=== PATIENT | female | born 1965 | race Caucasian/White ===

== ENCOUNTER 2021-06-14 11:56 | Emergency (ER) | payer OTHER, SELFPAY ==
[2021-06-14 12:15] VITALS: BP 154/94; PULSE 96; RESP 20; TEMP 37.1; O2SAT 97
--- NOTE | 2021-06-14 12:20 | ED.GENADULT ---
HPI - General Adult General Chief complaint: Skin/Abscess/Foreign Body Stated complaint: Rash bilateral legs and arms Time Seen by Provider: 06/14/21 12:20 Source: patient and RN notes reviewed Mode of arrival: ambulatory Limitations: no limitations History of Present Illness HPI narrative: 55-year-old female presents with complains of red, burning, and itching rash to arms, legs, face, and chest for the past 9 days. Devang reports increasing symptoms over the past 2-3 days. Devang reports outside doing yard work (cutting debris off fence) 1-2 days prior to rash and again 1-2 days. Hydrocortisone, anti-itching cream, apple cider vinegar, and po Benadryl (last today at 03:00) with little relief. Denies new detergent, personal hygiene products, or laundry detergent. No new foods or medications. No swelling, bleeding, or drainage. Denies fever or chills, headaches, weakness, fatigue, myalgia, facial swelling, or tongue swelling. Denies chest pain or dyspnea. Remains active. The patient reports she has not been diagnosed with COVID-19. The patient reports she received 2 Moderna COVID-19 vaccines. The patient reports she is not waiting for the results of a COVID-19 lab test. The patient reports she does not have weakness, fatigue, or myalgia. The patient reports she does not have a new or worsening cough or shortness of breath. The patient reports she does not have any rhinorrhea, congestion, loss of taste or smell, sore throat, and diarrhea. Denies recent traveling. Denies concerns for COVID-19 or exposures. At this time, the patient is not suspected of having COVID-19. Some parts of this dictation were generated by voice recognition software and may contain typographical and/or grammatical inaccuracies. Related Data Home Medications Medication Instructions Recorded Confirmed albuterol sulfate 1 puff INHALATION TID 06/14/21 06/14/21 sertraline 100 mg PO DAILY 06/14/21 06/14/21 Allergies Allergy/AdvReac Type Severity Reaction Status Date / Time No Known Allergies Allergy Verified 06/14/21 12:24 Review of Systems Review of Systems: CONSTITUTIONAL: Denies fever, chills, sweats. EYES: Denies visual changes, redness, discharge. ENT: Denies rhinorrhea, congestion, sore throat, otalgia. CARDIOVASCULAR: Denies chest pain, palpitations, edema. RESPIRATORY: Denies dyspnea, wheezing, cough. GASTROINTESTINAL: Denies abdominal pain, nausea, vomiting, diarrhea. SKIN: Complains of red, burning, and itching rash to arms, legs, face, and chest. Denies drainage. MUSCULOSKELETAL: Denies acute back pain, joint pain, or myalgia. NEUROLOGIC: Denies numbness or focal weakness. PSYCHIATRIC: Denies anxiety or depression. All other systems reviewed are negative, except as documented in HPI. [facility] Past Medical History Medical History (Updated 06/15/21 @ 00:01 by Corwin Pretty) Anxiety Depression Surgical History Surgical History (Updated 06/14/21 @ 13:21 by EDUARDO Nunn) No significant past surgical history Family History Family History (Updated 06/14/21 @ 13:22 by EDUARDO Nunn) Father Cerebral hemorrhage Mother Natural with proved cause Social History Social History (Updated 06/14/21 @ 13:23 by EDUARDO Nunn) Smoking packs per day: 1 Smoking cigarettes per day: 20.0 Years smoked: 30 Smoking pack-years: 30.00 Smoking status: Current every day smoker Tobacco type: cigarettes Second hand tobacco smoke exposure: No Alcohol intake: current Substance use: current Substance use type: marijuana Living arrangements: with family Occupation/Education: occupation Sexual Orientation (if Verbalized by the Patient): Straight or Heterosexual Comments At time of signature, agree with nurse past medical, surgical, social, and family history. There is no relevant family history pertinent to the presenting complaint. Exam Narrat
[2021-06-14] MEDS: methylPREDNISolone SOD SUCC 125 MG VIAL IM (12:38)
--- NOTE | 2021-06-14 12:55 | PC.NURSE ---
1217-Bilateral arm and legs diffuse red rash noted. Various scratches and abrasions noted to bilateral arms and legs. Multiple red, open areas and scabbed areas noted to bilateral inner thighs. No evidence of infection noted at this time.
== END 2021-06-14 13:02 | disposition home or self-care (01) ==
PROVIDERS: Emergency Provider Nurse Practitioner Family; PCP Family Medicine
DX: L23.7 Allergic contact dermatitis due to plants, except food (principal); F17.210 Nicotine dependence, cigarettes, uncomplicated; F41.9 Anxiety disorder, unspecified; F32.9 Major depressive disorder, single episode, unspecified
CPT/HCPCS: 96372; 99213; G0463; J2930

== ENCOUNTER 2022-06-14 13:49 | Emergency (ER) | payer OTHER, SELFPAY ==
[2022-06-14 14:03] VITALS: BP 175/92; PULSE 100; RESP 18; TEMP 36.3; O2SAT 98
--- NOTE | 2022-06-14 14:20 | ED.SKABFB ---
HPI - Skin/Abscess/Foreign Bdy General Chief complaint: Skin/Abscess/Foreign Body Stated complaint: bee sting Time Seen by Provider: 06/14/22 14:10 Source: patient Mode of arrival: ambulatory Limitations: no limitations History of Present Illness HPI narrative: Patient presents today complaining of a bee sting to the posterior aspect of her left upper leg that was sustained approximately 2 hours prior to arrival. States the area has become swollen in the swollen area continues to grow. She denies any shortness of breath, difficulty swallowing, nausea or vomiting. She has applied ice, baking soda, and apple cider vinegar without relief of symptoms. Related Data Home Medications Medication Instructions Recorded Confirmed albuterol sulfate 90 mcg/actuation 1 puff inhalation PRN PRN 06/14/21 06/14/22 aerosol inhaler Shortness Of Breath Or Wheezing sertraline 100 mg tablet 100 mg PO DAILY 06/14/21 06/14/22 Allergies Allergy/AdvReac Type Severity Reaction Status Date / Time No Known Allergies Allergy Verified 06/14/22 13:54 Review of Systems Review of Systems: CONSTITUTIONAL: Denies body aches, fever, chills, or sweats. EYES: Denies visual changes, redness, or discharge. ENT: Denies rhinorrhea, congestion, sore throat, or otalgia. CARDIOVASCULAR: Denies chest pain, palpitations, or edema. RESPIRATORY: Denies cough or dyspnea. GASTROINTESTINAL: Denies abdominal pain, nausea, vomiting, or diarrhea. GENITOURINARY: Denies dysuria or hematuria. SKIN: + Bee sting MUSCULOSKELETAL: Denies back pain, joint pain, or myalgia. NEUROLOGIC: Denies headache, numbness, tingling, or weakness. PSYCH: Denies depression or anxiety. [facility] Past Medical History Medical History (Updated 06/14/22 @ 14:26 by Kayla Hodges, EDUARDO, ) Anxiety Depression Surgical History Surgical History (Updated 06/14/21 @ 13:21 by EDUARDO Nunn) No significant past surgical history Family History Family History (Updated 06/14/21 @ 13:22 by EDUARDO Nunn) Father Cerebral hemorrhage Mother Natural with proved cause Social History Social History (Updated 06/14/21 @ 13:23 by Tatonya M. Hernandez, [employer]) Smoking packs per day: 1 Smoking cigarettes per day: 20.0 Years smoked: 30 Smoking pack-years: 30.00 Smoking status: Current every day smoker Tobacco type: cigarettes Second hand tobacco smoke exposure: No Alcohol intake: current Substance use: current Substance use type: marijuana Sexual Orientation (if Verbalized by the Patient): Straight or Heterosexual Comments At time of signature, I have reviewed and agree with nursing past medical, surgical, social and family history unless otherwise noted. Please see nursing chart for further information. There is no relevant family history pertinent to the presenting complaint Exam Narrative: GENERAL: Well-appearing, well-nourished, and in no acute distress. HEAD: Normocephalic, atraumatic. EYES: EOMI. No redness or drainage. ENT: Mucous membranes pink and moist. No facial swelling. NECK: Normal AROM. CHEST: No respiratory distress. EXTREMITIES: Normal range of motion. No edema. SKIN: Warm, dry, no rash. Capillary refill normal. Normal skin turgor. 13 x 9 cm area of mild erythema and localized edema to the left posterior thigh. 2 small puncture wounds noted. Area is nontender. No induration or fluctuance noted. NEURO: No focal deficits. Alert and oriented x3. Gait steady. PSYCH: Normal affect. No signs of depression or anxiety. Course Course Level of Care: Express Care Visit Vital Signs Vital signs: Vital Signs Temperature 97.4 F L 06/14/22 14:03 Pulse Rate 100 06/14/22 14:03 Respiratory Rate 18 06/14/22 14:03 Blood Pressure 175/92 H 06/14/22 14:03 Pulse Oximetry 98 06/14/22 14:03 Oxygen Delivery Room Air 06/14/22 14:03 Temperature 97.4 F L 06/14/22 14:03 Pulse Rate 100
[2022-06-14 14:24] VITALS: BP 158/92
== END 2022-06-14 14:28 | disposition home or self-care (01) ==
PROVIDERS: Emergency Provider Nurse Practitioner; PCP Family Medicine
DX: T63.441A Toxic effect of venom of bees, accidental (unintentional), initial encounter (principal); F41.9 Anxiety disorder, unspecified; F32.A Depression, unspecified; F17.210 Nicotine dependence, cigarettes, uncomplicated
CPT/HCPCS: 96372; 99213; G0463; J1100

== ENCOUNTER 2022-07-18 16:59 | Emergency (ER) | payer OTHER, SELFPAY ==
--- NOTE | ~2022-07-18 | XR_ITS ---
EXAMINATION: XR chest 2V DATE: 07/18/2022 17:20 INDICATION: Productive cough TECHNIQUE: PA and lateral views of the chest are obtained. COMPARISON: None available FINDINGS: The lungs are hyperinflated. There are minimal airspace opacities of the right middle lobe. No pleural effusion or pneumothorax. The cardiomediastinal silhouette is normal. There is mild thora cic spondylosis. IMPRESSION: 1. Airspace opacities of the right middle lobe which may be infectious or inflammatory. Recommend fol lowup radiographs in 10-14 days after appropriate therapy to evaluate for improvement/resolution. Reviewed, dictated and finalized at location A. IMPRESSION: 1. Airspace opacities of the right middle lobe which may be infectious or infla mmatory. Recommend followup radiographs in 10-14 days after appropriate therapy to evaluate for improvement/resolution.
[2022-07-18 17:08] VITALS: BP 152/94; PULSE 116; RESP 20; TEMP 36.7; O2SAT 94
--- NOTE | 2022-07-18 17:14 | ED.URI ---
HPI - URI/Sore Throat General Chief Complaint: Upper Respiratory Infection Stated Complaint: Cough,Shortness of Breath,Runny Nose,Fatigue Time Seen by Provider: 07/18/22 17:15 History of Present Illness HPI Narrative: Devang Poole is a 56 yo female with PMH asthma who comes with a 7-10 day hx of cough and fever, sob. Has coughing fits that make her sob. She vomited firts few days, has been cpoughing since. No dx of respiratory illnesses Related Data Home Medications Medication Instructions Recorded Confirmed albuterol sulfate 90 mcg/actuation 1 puff inhalation PRN PRN 06/14/21 07/18/22 aerosol inhaler Shortness Of Breath Or Wheezing sertraline 100 mg tablet 100 mg PO DAILY 06/14/21 07/18/22 Allergies Allergy/AdvReac Type Severity Reaction Status Date / Time No Known Allergies Allergy Verified 07/18/22 17:01 Review of Systems Review of Systems: CONSTITUTIONAL: Denies fever, chills, sweats. Shortness of breath EYES: Denies visual changes, redness, discharge. ENT: Denies rhinorrhea, has congestion, sore throat, otalgia. CARDIOVASCULAR: Denies chest pain, palpitations, edema. RESPIRATORY: Denies dyspnea, wheezing, has cough GASTROINTESTINAL: Denies abdominal pain, nausea, vomiting, diarrhea. GENITOURINARY: Denies dysuria, hematuria, abnormal discharge SKIN: Denies rash or itching. NEUROLOGIC: Denies numbness, or focal weakness. PSYCHIATRIC: Denies anxiety or depression. [facility] Past Medical History Medical History Anxiety Depression Surgical History Surgical History No significant past surgical history Family History Family History Father Cerebral hemorrhage Mother Natural with proved cause Social History Social History Smoking packs per day: 1 Smoking cigarettes per day: 20.0 Years smoked: 30 Smoking pack-years: 30.00 Smoking status: Current every day smoker Tobacco type: cigarettes Second hand tobacco smoke exposure: No Alcohol intake: current Substance use: current Substance use type: marijuana Sexual Orientation (if Verbalized by the Patient): Straight or Heterosexual Exam Narrative: GENERAL: This is a well-nourished, well-developed patient, in mild distress. HEAD: normocephalic, atraumatic. EYES: Sclera clear/white. Vision is grossly intact. EARS: External ears normal, auditory canals clear and without drainage, TMs normal without perforation. Hearing grossly intact. NOSE: External nose normal without nasal discharge, nares without redness, has rhinorrhea. THROAT: Mucous membranes moist, posterior pharynx erythema NECK: Neck supple, non-tender CARDIOVASCULAR: Regular rate and rhythm without murmurs, gallops, or rubs. RESPIRATORY: Diminished to auscultation. Breath sounds equal bilaterally. No wheezes, rales, or rhonchi. GASTROINTESTINAL: Not done SKIN: warm, intact with no suspicious lesions or rash, good texture and turgor. NEURO: awake, alert, and oriented to person, place and time. There were no obvious focal neurologic abnormalities. Steady gait EXTREMITIES: Normal range of motion. BACK: Nontender without deformity Course Course Emergency Course: Patient comes with a 9 to 10 days of symptoms initially with vomiting and then shortness of breath and cough COVID test done-negative Checks x-ray done-lungs are hyperinflated minimal airspace opacities right middle lobe no pleural effusion cardiomediastinal silhouette is normal mild thoracic spondylosis DL air opacities in the middle right lobe may be infectious or inflammatory recommend follow-up in 10 to 14 days after appropriate therapy Started on Zithromax prednisone albuterol inhaler shiloh Antoine Level of Care: Express Care Visit Vital Signs Vital signs: Shell
== END 2022-07-18 17:35 | disposition home or self-care (01) ==
PROVIDERS: Emergency Provider Nurse Practitioner; PCP Family Medicine
DX: J44.1 Chronic obstructive pulmonary disease with (acute) exacerbation (principal); J18.9 Pneumonia, unspecified organism; F17.210 Nicotine dependence, cigarettes, uncomplicated; Z20.822 Contact with and (suspected) exposure to COVID-19
CPT/HCPCS: 71046; 87426; 99213; C9803; G0463

== ENCOUNTER 2025-04-01 18:01 | Emergency (ER) | payer OTHER, SELFPAY ==
--- OUTSIDE RECORDS SUMMARY | 2025-04-01 18:03 | XMS_ITS | Clinical Summary ---
Author Organization [facility] at the Medical Office Building Address [address] [place] [phone] Care Team Providers Care Marine Operations Coordinator Name Role Phone Omar Correa DO Primary Care Provider + Allergies No known active allergies Medications sertraline (ZOLOFT) 100 mg tabletIndications :RADHA (generalized anxiety disorder) Take 1 tablet (100 mg total) by mouth daily 90 tablet 3 02/01/2025 Active albuterol HFA (Ventolin HFA) 90 mcg/actuation inhalerIndication s:Mild intermittent asthma without complication Inhale 1 puff 3 (three) times a day. 8 g 2 02/01/2025 Active Active Problems Problem Noted Date Diagnosed Date Family history of colon cancer in mother 024 Special screening for malignant neoplasms, colon 01/10/2024 Hypertension 06/29/2019 RADHA (generalized anxiety disorder) 09/24/2017 Mild intermittent asthma without complication Encounters Date Type Department Care Team Description 02/01/2025 9:15 AM CDT Office Visit [facility] Primary Care [address] [place] [phone] Omar Correa DO Annual physical exam (Primary Dx); RADHA (generalized anxiety disorder); Primary hypertension; Mild intermittent asthma without complication; RADHA (generalized anxiety disorder); Mild intermittent asthma without complication from Last 3 Months Immunizations Immunization Administration Dates Next Due Influenza, Trivalent, IM (MDV) 10/07/2021 Influenza, Unspecified 07/20/2024,08/30/2023 Moderna SARS-CoV-2 Monovalent Vaccination (12+ Y RS) 04/22/2021 Pneumococcal Conjugate Pcv20 01/10/2024 Tdap 05/21/2019 ZOSTER Recombinant 07/10/2024,01/10/2024 Surgical History Surgery Date Site/Laterality Comments UPPER GASTROINTESTINAL ENDOSCOPY COLONOSCOPY polyps Medical History Medical History Date Comments Hypertension Anxiety Colon polyp Depression Family History Medical History Relation Name Comments Colon cancer Mother Colon polyps Mother Relation Name Status Comments Father Mother Social History Tobacco Use Types Packs/Day Years Used Date Smoking Tobacco: Every Day Cigarettes Alcohol Use Standard Drinks/Week Comments Yes 0 (1 standard drink = 0.6 oz pur e alcohol) AUDIT-C Answer Date Recorded Q1: How often do you have a drink containing alcohol? 4 or more times a week 05/14/2024 Q2: How many drinks containi ng alcohol do you have on a typical day when you are drinking? Patient does not drink Q3: How often do you have si x or more drinks on one occasion? Weekly 05/14/2024 PHQ-2 Answer Date Recorded PHQ-2 Total Score (If total score is 3 or more points, staff should administer the PHQ-9) 0 02/01/2025 Personal Safety Answer Date Recorded Have you ever been in or are you currently in a harmful physical or emotional relationship or is someone making you feel afraid or unsafe? Denies 05/14/2024 Comments Unknown Sex and Gender Information Value Date Recorded Sex Assigned at Not on file Legal Sex Female 8:49 PM ADVERTISING ANALYST Gender Identity Not on file Sexual Orientation Not on file Obstetrics History Last Filed Vital Signs Vital Sign Reading Time Taken Comments Blood Pressure 116/80 02/01/2025 9:04 AM CDT Pulse 86 02/01/2025 9:04 AM CDT Temperature 36.4 C (97.5 F) 02/01/2025 9:04 AM CDT Respiratory Rate 21 05/14/2024 8:30 AM CDT Oxygen Saturation 98% 02/01/2025 9:04 AM CDT Inhaled Oxygen Concentration - - Weight 53.9 kg (118 lb 14.4 oz) 02/01/2025 9:04 AM CDT Height 160 cm (5' 3) 02/01/2025 9:04 AM CDT Body Mass Index 21.06 02/01/2025 9:04 AM CDT Plan of Treatment Health Maintenance Due Date Last Done Comments Hepatitis B Screening 1983 Cervical Cancer Screening 11/28/2017 11/28/2016 Breast Cancer Screening-Mammogram 10/08/2018 017 Covid-19 Vaccine (2023-2 5 season) 2024 10/07/2021, 05/22/2021, 04/22/2021 Depression Screening 02/01/2026 02/01/2025, 01/10/2024, 04/25/2021, Additional history exists Regular Well Visit/Exam 18-64 02/01/2026, 01/10/2024, 04/25/2021, Additional history exists Colon Cancer Screening-Colonoscopy 05/14/2029 05/14/2024, 07/03/2017, 12/03/2013, Additional history exists DTaP/Tdap/Td Vaccine (2 - Td or Tdap) 05/21/2029 05/21/2019 Pneumococcal vaccine <65 Completed 01/10/2024 Colon Cancer Screening-CT Colonography Discontinued 05/14/2024, 07/03/2017, 12/03/2013, Additional history exists Colon Cancer Screening-DNA Stool Discontinued 05/14/2024, 07/03/2017, 12/03/2013, Additional history exists Colon Cancer Screening-FIT Discontinued 05/14, 07/03/2017, 12/03/2013, Additional history exists Colon Cancer Screening-Sigmoidoscopy Discontinued 05/14/2024, 07/03/2017, 12/03/2013, Additional history exists Hepatitis C Screening Completed 06/03/2024 Zoster Vaccine Completed 07/10/2024, 01/10/2024 Influenza Vaccine Completed 07/20/2024, , 10/07/2021 Procedures Procedure Name Priority Date/Time Associated Diagnosis Comments HEPATITIS C ANTIBODY Routine 06/03/2024 8:38 AM CDT Mild intermittent asthma without complication RADHA (generalized anxiety disorder) Annual physical exam Primary hypertension Colon cancer screening Family history of colon cancer in mother COLONOSCOPY 05/14/2024 7:23 AM CDT SCREENING MAMMOGRAM BILATERAL W ANDREA Routine 10/08/2017 11:34 AM ADVERTISING ANALYST from Last 3 Months or Most Recently Relevant to Health Maintenance Results * Hepatitis C antibody Blood (06/03/2024 8:38 AM CDT) Hep C Ab Nonreactive Nonreactive Comment: Antibodies to HCV not detected. Does NOT exclude the possibility of recent exposure to HCV. Current interpretive data was last revised on 22 Interpretive Data Nonreactive: Antibodies to HCV not detected. Does NOT exclude the possibility of recent exposure to HCV. Equivocal: Equivocal for HCV antibodies. Supplemental molecular testing will be automatically performed to determine infection status in accordance with current CDC screening recommendations. Reactive: Positive for HCV antibodies. This may represent current or past HCV infection. Supplemental molecular testing will be automatically performed to determine current infection status in accordance with current CDC screening recommendations. Interpretive data was last revised on 2020. Blood 06/03/2024 8:38 AM CDT 06/03/2024 10:28 AM CDT Omar Correa DO LAB MICROBIOLOGY - GENER AL ORDERABLES Final Result [facility] [address] [facility] Department [place] [address] * Colonoscopy (05/14/2024 7:23 AM CDT) Anatomical Region Laterality Modality Other Narrative Procedure Note Omar Correa DO - 05/14/2024 7:23 AM CDT [facility] GI ENDOSCOPY Patient Name: Devang Poole Procedure Date: 05/14/2024 7:23 AM Date of : 1965 Admit Type: Outpatient Age: 58 Gender: Female Attending MD: Omar Correa D.O. Room: [facility] ENDOSCOPY ROOM 05 Note Status: Finalized Procedure: Colonoscopy Indications: Family history of colon cancer in a first-degree relative before age 60 years Referring MD: Omar Correa D.O. Providers: Omar Correa D.O. Medicines: See the Anesthesia note for documentation of the administered medications Complications: No immediate complications. Estimated Blood Loss: Estimated blood loss: none. Procedure: The benefits, risks and alternatives of theprocedure and sedation were discussed and informed consentwas obtained. All questions were answered. Please referto the signed informed consent document in the medical record. The scope was passed under direct vision.The [id number] colonoscope was introduced through theanus and advanced to the cecum, identified byappendiceal orifice and ileocecal valve. The colonoscopy was performed without difficulty. The patient tolerated the procedure well. The quality of the bowel preparation was good. Prep was administered in asplit dose. Findings: A polyp was found in the sigmoid colon. The polyp was pedunculated.The polyp was removed with a hot snare. Resection and retrieval were complete. Impression: - One polyp in the sigmoid colon, removed with ahot snare. Resected and retrieved. Recommendation: - Patient has a contact number available for emergencies. The signs and symptoms of potential delayed complications were discussed with thepatient. Return to normal activities tomorrow. Written discharge instructions were provided to thepatient. - Resume previous diet. - Continue present medications. - Await pathology results. - Repeat colonoscopy in 3 years for surveillancebased on pathology results. Omar Correa D.O. 05/14/2024 8:02:33 AM Number of Addenda: 0 Note Initiated On: 05/14/2024 7:23 AM Recognized by the [place] [employer] Gastrointestinal End[employer] for promoting quality in endoscopy Omar Correa DO ENDOSCOPY PROCEDURES Fin al Result * Screening Mammogram Bilateral W Andrea (10/08/2017 11:34 AM ADVERTISING ANALYST) Anatomical Region Laterality Modality Breast Bilateral Mammography 10/08/2017 11:3 4 AM ADVERTISING ANALYST Impressions 10/15/2017 4:55 PM ADVERTISING ANALYST BI-RAD 1 NEGATIVE There is no mammographic evidence of malignancy. A 1 year screening mammogram is recommended. The patient has been or will be contacted. The patient will be entered into a reminder system with a target due date of 1 year for her next screening exam. Electronically signed by: Reinier medrano/penrad:10/15/2017 16:54:42 Second Ride Fare Collector: Mellissa MCCLELLAN (R)(M), [facility] letter sent: Normal Exam Reading location: BI-RADS: 1 Negative [EOD] Narrative 10/15/2017 4:55 PM ADVERTISING ANALYST - MG BILATERAL DIGITAL SCREENING MAMMOGRAM 3D/2D WITH MEDIOLATERAL OBLIQUE CRANIOCAUDAL: 10/08/2017 The study was acquired using full field digital technology and interpreted from soft copy. 2D digital mammographic views, as well as 3D digital tomosynthesis were performed in the CC and MLO projections. CLINICAL: Routine mammogram. Denies any problems today. No personal history of breast cancer. No family history of breast cancer. COMPARISONS: Comparison is made to exams dated: 09/22/2008 mammogram and 08/25/2008 mammogram. BREAST TISSUE: There are scattered areas of fibroglandular density. FINDINGS: No significant masses, calcifications, or other findings are seen in either breast. There has been no significant interval change. Procedure Note Provider, MD Evon - 03/08/2021 - MG BILATERAL DIGITAL SCREENING MAMMOGRAM 3D/2D WITH MEDIOLATERAL OBLIQUE CRANIOCAUDAL: 10/08/2017 The study was acquired using full field digital technology and interpretedfrom soft copy. 2D digital mammographic views, as well as 3D digital tomosynthesis were performed in the CC and MLO projections. CLINICAL: Routine mammogram. Denies any problems today. No personalhistory of breast cancer. No family history of breast cancer. COMPARISONS: Comparison is made to exams dated: 09/22/2008 mammogram and 08/25/2008 mammogram. BREAST TISSUE: There are scattered areas of fibroglandular density. FINDINGS: No significant masses, calcifications, or other findings areseen in either breast. There has been no significant interval change. IMPRESSION: BI-RAD 1 NEGATIVE There is no mammographic evidence of malignancy. A 1 year screeningmammogram is recommended. The patient has been or will be contacted. The patient will be entered into a reminder system with a target due dateof 1 year for her next screening exam. Electronically signed by: Reinier medrano/sanjay:10/15/2017 16:54:42 Second Ride Fare Collector: Mellissa MCCLELLAN (R)(M), [facility] letter sent: Normal Exam Reading location: BI-RADS: 1 Negative [EOD] Omar Correa DO IMG MAMMO PROCEDURES Fin al Result from Last 3 Months or Most Recently Relevant to Health Maintenance Insurance [facility] PL[facility] PL[facility] Care Teams Marine Operations Coordinator Relationship Specialty Start Date End Date Omar Correa DO [address] [place] [id number] PCP - General Family Medicine 05/08/19
--- OUTSIDE RECORDS SUMMARY | 2025-04-01 18:03 | XMS_ITS | Referral Summary ---
Author Organization [facility] at the Medical Office Building Address [address] [place] [phone] Care Team Providers Care Greenhouse Instructor Name Role Phone Omar Correa DO Primary Care Provider + Encounters Date Type Department Care Team Description 02/01/2025 9:15 AM CDT Office Visit [facility] Primary Care [address] [place] [address] [address] [place] [phone] Omar Correa DO Annual physical exam (Primary Dx); RADHA (generalized anxiety disorder); Primary hypertension; Mild intermittent asthma without complication; RADHA (generalized anxiety disorder); Mild intermittent asthma without complication from Last 3 Months Allergies No known active allergies Medications sertraline [...] disorder) 09/24/2017 Mild intermittent asthma without complication Immunizations Immunization Administration Dates Next Due Influenza, Trivalent, IM (MDV) 10/07/2021 Influenza, Unspecified 07/20/2024,08/30/2023 Moderna SARS-CoV-2 Monovalent Vaccination (12+ Y RS) 04/22/2021 Pneumococcal Conjugate Pcv20 01/10/2024 Tdap 05/21/2019 ZOSTER Recombinant 07/10/2024,01/10/2024 Social History Tobacco Use Types Packs/Day Years [...] on file Legal Sex Female 8:49 PM SQL ETL DEVELOPER Gender Identity Not on file Sexual Orientation Not on file Last Filed Vital Signs Vital Sign Reading [...] 02/01/2025 9:04 AM CDT Plan of Treatment Not on file Procedures Procedure Name Priority Date/Time Associated Diagnosis Comments HEPATITIS C ANTIBODY Routine 06/03/2024 8:38 AM CDT Mild intermittent asthma without complication RADHA (generalized anxiety disorder) Annual physical exam Primary hypertension Colon cancer screening Family history of colon cancer in mother COLONOSCOPY 05/14/2024 7:23 AM CDT SCREENING MAMMOGRAM BILATERAL W ANDREA Routine 10/08/2017 11:34 AM SQL ETL DEVELOPER from Last 3 Months or Most Recently [...] MICROBIOLOGY - GENER AL ORDERABLES Final Result [facility] [address] [facility] Department of Laboratories [place], [place] [id number] * Colonoscopy (05/14/2024 7:23 AM CDT) Anatomical Region Laterality Modality Other Narrative Procedure Note Omar Correa, - 05/14/2024 7:23 AM CDT [facility] GI ENDOSCOPY Patient Name: Devang Poole Procedure Date: 05/14/2024 7:23 AM Date of : 1965 Admit Type: Outpatient Age: 58 Gender: Female Attending MD: Omar Correa D.O. Room: [facility] ENDOSCOPY ROOM 05 Note Status: Finalized [...] The scope was passed under direct vision.The [id number] colonoscope was introduced through theanus and advanced [...] On: 05/14/2024 7:23 AM Recognized by the [place] [employer] G[employer]intestinal Endoscopy for promoting quality in endoscopy Omar Correa DO ENDOSCOPY PROCEDURES Fin al Result * Screening Mammogram Bilateral W Andrea (10/08/2017 11:34 AM SQL ETL DEVELOPER) Anatomical Region Laterality Modality Breast Bilateral Mammography 10/08/2017 11:3 4 AM SQL ETL DEVELOPER Impressions 10/15/2017 4:55 PM SQL ETL DEVELOPER BI-RAD 1 NEGATIVE There is no mammographic evidence of malignancy. A 1 year screening mammogram is recommended. The patient has been or will be contacted. The patient will be entered into a reminder system with a target due date of 1 year for her next screening exam. Electronically signed by: Reinier medrano/sanjay:10/15/2017 16:54:42 Cardiology Consultants: Mellissa Alonzo RT (R)(M), [facility] letter sent: Normal Exam Reading location: BI-RADS: 1 Negative [EOD] Narrative 10/15/2017 4:55 PM SQL ETL DEVELOPER - MG BILATERAL DIGITAL SCREENING MAMMOGRAM 3D/2D [...] exam. Electronically signed by: Reinier medrano/sanjay:10/15/2017 16:54:42 Cardiology Consultants: Mellissa Nesbitt)(Andres), [facility] letter sent: Normal Exam Reading location: BI-RADS: 1 Negative [EOD] Omar Correa DO IMG MAMMO PROCEDURES Fin al Result from Last 3 Months or Most Recently Relevant to Health Maintenance Insurance [facility] CHOICE PLUS [facility] HMO/PPO Address: [address] [address] [place] [address] [facility] CHOICE PLUS [facility] HMO/PPO Address: [address] [address] [place] [address] Care Teams Greenhouse Instructor Relationship Specialty Start Date End Date Omar Correa DO [address] [address] PCP - General Family Medicine 05/08/19
[2025-04-01 18:11] VITALS: BP 167/91; PULSE 91; RESP 18; TEMP 36.4; O2SAT 99
--- NOTE | 2025-04-01 18:34 | ED.EAR ---
HPI - Ear Problem General Chief complaint: Ear Stated complaint: swelling in lt ear and lt side of neck Time Seen by Provider: 04/01/25 18:20 Source: patient, family and RN notes reviewed Mode of arrival: ambulatory Limitations: no limitations History of Present Illness HPI Narrative: 59-year-old female presents Express Care complaining of left ear and neck swelling since yesterday. 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 Since then she has nose increased redness and swelling to her left ear along side the left lateral wall of her neck. Patient denies any pain but reports that the area is very itchy. Patient has not tried anything [id number]. Patient denies any ear pain, upper respiratory symptoms, cough, fevers, difficulty breathing, wheezing, or rash. Related Data Home Medications ?Medication ?Instructions ?Recorded ?Confirmed ?Last Taken ?Type albuterol sulfate 90 mcg/actuation 1 puff inhalation PRN PRN 06/14/21 07/18/22 Unknown History aerosol inhaler Shortness Of Breath Or Wheezing sertraline 100 mg tablet 100 mg PO DAILY 06/14/21 07/18/22 Unknown History Allergies Allergy/AdvReac Type Severity Reaction Status Date / Time No Known Allergies Allergy Verified 04/01/25 18:12 Review of Systems Review of Systems: CONSTITUTIONAL: Denies fever, chills, or sweats. EYES: Denies visual changes, redness, or discharge. ENT: Denies rhinorrhea, congestion, sore throat, difficulty clearing secretions, or otalgia. CARDIOVASCULAR: Denies chest pain, palpitations, or edema. RESPIRATORY: Denies cough, wheezing, or dyspnea. GASTROINTESTINAL: Denies abdominal pain, nausea, vomiting, or diarrhea. GENITOURINARY: Denies dysuria or hematuria. SKIN: Denies rash. Positive for redness, itching, and swelling. MUSCULOSKELETAL: Denies back pain, joint pain, or myalgia. NEUROLOGIC: Denies headache, numbness, or weakness. PSYCHIATRIC: Denies anxiety or depression. All other systems reviewed are negative, except as documented in HPI. [facility] Past Medical History Medical History Anxiety Depression Surgical History Surgical History No significant past surgical history Family History Family History Father Cerebral hemorrhage Mother Natural with proved cause Social History Social History Smoking packs per day: 1 Smoking cigarettes per day: 20.0 Years smoked: 30 Smoking pack-years: 30.00 Smoking status: Current every day smoker Tobacco type: cigarettes Second hand tobacco smoke exposure: No Alcohol intake: current Substance use: current Substance use type: marijuana Living arrangements: with family Occupation/Education: occupation Sexual Orientation (if Verbalized by the Patient): Straight or Heterosexual Comments At the time of my signature, I reviewed and agree with the nursing past medical, surgical, social, and family history. There is no relevant family history pertinent to the patient complaint. Exam Narrative: GENERAL: This is a well-nourished, well-developed adult, in no apparent distress. They are non ill-appearing, nontoxic appearing. HEAD: normocephalic, atraumatic. EYES: Sclera clear/white. Conjunctiva normal. Vision is grossly intact. Extraocular movements intact EARS: Right External ears normal, left external ear erythematous and nontender, pruritic. No area of fluctuance or induration. No redness or swelling to the mastoid process bilaterally, no mastoid tenderness bilaterally. Auditory canals clear and without drainage, TMs normal without perforation. Hearing grossly intact. NOSE: External nose normal with no obvious nasal discharge, nasal turbinates without redness, no rhinorrhea. THROAT: Mucous membranes moist, posterior pharynx clear, without erythema or swelling. Uvula midline. NECK: Neck supple, non-tender without lymphadenopathy, masses or thyromegaly. CARDIOVASCULAR: Regular rate and rhythm without murmurs, gallops, or rubs. RESPIRATORY: Clear to auscultation. Breath sounds equal bilaterally. No wheezes, rales, or rhonchi. Respiratory rate normal, respiratory effort nonlabored, no respiratory distress SKIN: Pruritic Area of erythema and mild swelling to the left lateral neck extending up into the left external ear. No area of fluctuance, or induration, skin is not hot to touch. It is blanchable. No surrounding cellulitis, area of erythema is nontender. No hives or wheels. No other rashes present. NEURO: awake, alert, and oriented to person, place and time. There were no obvious focal neurologic abnormalities. EXTREMITIES: No joint tenderness, effusion, or edema noted. Course Course Emergency Course: Portions of this record may have been created with voice recognition software Level of Care: Express Care Visit Vital Signs Vital signs: Vital Signs Temperature 97.5 F L 04/01/25 18:11 Pulse Rate 91 04/01/25 18:11 Respiratory Rate 18 04/01/25 18:11 Blood Pressure 167/91 H 04/01/25 18:11 Pulse Oximetry 99 04/01/25 18:11 Oxygen Delivery Room Air 04/01/25 18:11 Temperature 97.5 F L 04/01/25 18:11 Pulse Rate 91 04/01/25 18:11 Respiratory Rate 18 04/01/25 18:11 Blood Pressure 167/91 H 04/01/25 18:11 Pulse Oximetry 99 04/01/25 18:11 Oxygen Delivery Room Air 04/01/25 18:11 Reviewed Medical Decision Making MDM Narrative Medical decision making narrative: Likely patient has allergic reaction to to a bug bite or sting. There is a questionable puncture site on the ear the patient is unsure. No evidence of mastoiditis, no evidence of cellulitis or infection. Will treat with prednisone and Kenalog cream. Discussed physical exam findings. Advised supportive measures and signs/symptoms to go to the ER. Pt is appropriate for outpt treatment and f/u. Differential Diagnosis Differential Diagnosis: Otitis externa, otitis media, allergic reaction, mastoiditis, cellulitis Vital Signs Vital Signs: Vital Signs Temperature 97.5 F L 04/01/25 18:11 Pulse Rate 91 04/01/25 18:11 Respiratory Rate 18 04/01/25 18:11 Blood Pressure 167/91 H 04/01/25 18:11 Pulse Oximetry 99 04/01/25 18:11 Oxygen Delivery Room Air 04/01/25 18:11 Temperature 97.5 F L 04/01/25 18:11 Pulse Rate 91 04/01/25 18:11 Respiratory Rate 18 04/01/25 18:11 Blood Pressure 167/91 H 04/01/25 18:11 Pulse Oximetry 99 04/01/25 18:11 Oxygen Delivery Room Air 04/01/25 18:11 Critical Care Time Critical Care Time Critical Care Time: No Discharge Plan Discharge Clinical Impression: Allergic reaction Qualifiers: Encounter type: initial encounter Qualified Code(s): T78.40XA - Allergy, unspecified, initial encounter Patient Disposition: Home Condition: Stable Instructions: Insect Bite or Sting (ED) Additional Instructions: Take the prednisone as directed. Take prednisone with food. Apply the triamcinolone cream as directed. Apply to affected area. Follow-up with PCP in 3-5 days. If he develops any pain, worsening swelling and redness, pain behind your ear, at discharge, fevers, breathing problems, or any other concerns please go to the ER immediately. Patient Language: Latvian Prescriptions: New triamcinolone acetonide 0.025 % lotion 1 applic topical BID 7 Days Qty: 60 0RF Rx Instructions: Apply to affected area prednisone 20 mg tablet 40 mg PO DAILY 5 Days Qty: 10 0RF No Action sertraline 100 mg tablet 100 mg PO DAILY albuterol sulfate 90 mcg/actuation HFA aerosol inhaler 1 puff INHALATION PRN PRN (Reason: Shortness Of Breath Or Wheezing) Follow-up/Referrals: Madeline,Omar Costa MD [Primary Care Provider] - Time of Disposition: 18:31
== END 2025-04-01 18:36 | disposition home or self-care (01) ==
PROVIDERS: PCP Family Medicine
DX: T78.40XA Allergy, unspecified, initial encounter (principal); R22.1 Localized swelling, mass and lump, neck; H61.892 Other specified disorders of left external ear; F17.210 Nicotine dependence, cigarettes, uncomplicated; F12.90 Cannabis use, unspecified, uncomplicated; F41.9 Anxiety disorder, unspecified; F32.A Depression, unspecified
CPT/HCPCS: 99213; G0463